=== PATIENT | female | born 2000 | race African-American/Black ===

== ENCOUNTER 2019-03-09 15:15 | Emergency (ER) | payer OTHER ==
[~2019-03-09] VITALS: Ht 165.1 cm; Wt 56.7 kg
[2019-03-09 15:28] VITALS: BP 114/81
[2019-03-09] MEDS ORDERED: IBUPROFEN 600 MG TABLET PO ONE ×2 (15:53→16:00)
--- NOTE | 2019-03-09 15:55 | NUR ---
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
--- NOTE | 2019-03-09 16:43 | NUR ---
Patient discharged to home in stable condition. Written and verbal after care instructions given. Patient verbalizes understanding of instruction.
== END 2019-03-09 16:44 | disposition home or self-care (01) ==
LOC: ER 15:17
DX: S80.11XA Contusion of right lower leg, initial encounter (principal); Z88.0 Allergy status to penicillin; V49.49XA Driver injured in collision with other motor vehicles in traffic accident, initial encounter; Y93.89 Activity, other specified; Y92.413 State road as the place of occurrence of the external cause; Y99.8 Other external cause status
CPT/HCPCS: 73560-TC; 73590-TC